=== PATIENT | male | born 1990 | race Asian ===

== ENCOUNTER 2017-07-13 10:40 | Emergency (ER) | payer SELFPAY ==
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
[2017-07-13 12:33] VITALS: BP 117/70
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
== END 2017-07-13 12:32 | disposition home or self-care (01) ==
LOC: ED 10:40
DX: M54.2 Cervicalgia (principal); V43.52XA Car driver injured in collision with other type car in traffic accident, initial encounter; Y93.9 Activity, unspecified; Y92.9 Unspecified place or not applicable
CPT/HCPCS: 72125; 99281